=== PATIENT | male | born 1950 | race Caucasian/White ===

== ENCOUNTER 2020-02-23 10:53 | Day surgery (SDC) | payer MEDICARE ==
[~2020-02-23] VITALS: Ht 177.8 cm; Wt 87.5 kg
[~2020-02-23 10:53] MED LIST: ASPI-404 PO; ATOR20TA PO; GLIP5TAB12 PO; LISI-275 PO; METF-370 PO; MULTTAB99 PO; SITA100T7 PO
[2020-02-23] MEDS ORDERED: LIDOCAINE 2%HCL (LOCAL ANESTH.) INJ 20ML MDV ONE (11:33)
[2020-02-23] MEDS ORDERED: IODIXANOL 320MG/ML 100ML BTL IV ONE (13:38)
[2020-02-23] MEDS ORDERED: MIDAZOLAM HCL 1MG/1ML-2 ML VIAL ONE (13:47)
[2020-02-23] MEDS ORDERED: ANGIOMAX 250 MG VIAL IV ONE (13:47)
[2020-02-23] MEDS ORDERED: VERAPAMIL 2.5MG/ML INJ 2ML VIAL IV ONE (13:47)
[2020-02-23] MEDS ORDERED: SODIUM CHL 0.9% 0 ML ONE (13:47)
[2020-02-23] MEDS ORDERED: fentaNYL CITRATE 100 MCG/2 ML VL ONE (13:47)
[2020-02-23] MEDS ORDERED: HEPARIN SODIUM (PORCINE) 5000 UNITS/ML 1ML VIAL ONE (14:05)
== END 2020-02-23 15:56 | disposition home or self-care (01) ==
LOC: CATH 10:53
PROVIDERS: ATTEND Internal Medicine
DX: R94.39 Abnormal result of other cardiovascular function study (principal); I25.10 Atherosclerotic heart disease of native coronary artery without angina pectoris; I10 Essential (primary) hypertension; E78.5 Hyperlipidemia, unspecified; E78.00 Pure hypercholesterolemia, unspecified; E11.9 Type 2 diabetes mellitus without complications; Z87.891 Personal history of nicotine dependence; Z98.890 Other specified postprocedural states; Z79.899 Other long term (current) drug therapy; Z79.82 Long term (current) use of aspirin; Z11.59 Encounter for screening for other viral diseases
CPT/HCPCS: C1769; C1894; J1644; J2250; J3010; Q9967; U0003; 93454; 99152